=== PATIENT | male | born 1995 | race Caucasian/White ===

== ENCOUNTER 2023-02-20 08:13 | Emergency (ER) | payer SELFPAY ==
[~2023-02-20] VITALS: Ht 172.7 cm; Wt 56.8 kg
[2023-02-20 08:14] VITALS: TEMP 98
[2023-02-20 08:20] VITALS: BP 132/70; PULSE 93; RESP 16
[2023-02-20] MEDS ORDERED: KETOROLAC TROMETHAMINE 60 MG/2 ML VIAL IM ONE (09:15)
[2023-02-20] MEDS ORDERED: OxyCODONE HCL/ACETAMINOPHEN 5-325 MG TABLET PO ONE (09:15)
[2023-02-20] MEDS ORDERED: IBUP-1492 PO (09:25)
[2023-02-20] MEDS ORDERED: BACITRACIN 0.9 GM PACKET OINTMENT TP ONE (09:30)
== END 2023-02-20 10:24 | disposition home or self-care (01) ==
LOC: EMS 08:16
DX: S52.122A Displaced fracture of head of left radius, initial encounter for closed fracture (principal); X58.XXXA Exposure to other specified factors, initial encounter; Y93.89 Activity, other specified; Y92.89 Other specified places as the place of occurrence of the external cause; Y99.8 Other external cause status
CPT/HCPCS: 99283; 29105; 73080; 96372; J1885

== ENCOUNTER 2023-02-21 08:34 | Emergency (ER) | payer SELFPAY ==
[~2023-02-21] VITALS: Ht 175.3 cm; Wt 68.2 kg
[~2023-02-21 08:34] MED LIST: IBUP-1492 PO
[2023-02-21 08:40] VITALS: TEMP 97.9
[2023-02-21 09:38] VITALS: BP 114/60; PULSE 82; RESP 18
== END 2023-02-21 09:54 | disposition home or self-care (01) ==
LOC: EMS 08:34
DX: S52.122A Displaced fracture of head of left radius, initial encounter for closed fracture (principal); W19.XXXA Unspecified fall, initial encounter; Y93.89 Activity, other specified; Y92.89 Other specified places as the place of occurrence of the external cause; Y99.8 Other external cause status
CPT/HCPCS: 99281; Z7502

== ENCOUNTER 2023-02-24 19:59 | Emergency (ER) | payer SELFPAY ==
[~2023-02-24] VITALS: Ht 170.2 cm; Wt 56.8 kg
[2023-02-24 20:50] VITALS: BP 125/68; PULSE 89; RESP 16; TEMP 98.3
== END 2023-02-24 22:21 | disposition home or self-care (01) ==
LOC: EMS 20:00
DX: S52.122A Displaced fracture of head of left radius, initial encounter for closed fracture (principal); S60.511A Abrasion of right hand, initial encounter; X58.XXXA Exposure to other specified factors, initial encounter; Y93.89 Activity, other specified; Y92.89 Other specified places as the place of occurrence of the external cause; Y99.8 Other external cause status
CPT/HCPCS: 99282; Z7502

== ENCOUNTER 2023-03-31 20:41 | Emergency (ER) | payer MEDICAID, OTHER ==
[~2023-03-31] VITALS: Ht 175.3 cm; Wt 57.2 kg
[2023-03-31 20:50] VITALS: TEMP 98.2
[2023-03-31] MEDS: IBUPROFEN 400 MG TABLET PO ONE (21:16)
[2023-03-31] MEDS: BACITRACIN 0.9 GM PACKET OINTMENT TP ONE (22:22)
[2023-03-31 22:30] VITALS: BP 108/70; PULSE 72; RESP 16
[2023-03-31] MEDS ORDERED: IBUP-1506 PO (22:32)
== END 2023-03-31 22:56 | disposition home or self-care (01) ==
LOC: EMS 20:42
DX: S01.511A Laceration without foreign body of lip, initial encounter (principal); W19.XXXA Unspecified fall, initial encounter; Y93.89 Activity, other specified; Y92.89 Other specified places as the place of occurrence of the external cause; Y99.8 Other external cause status
CPT/HCPCS: 12011; 70450; 70486; 99284

== ENCOUNTER 2023-04-07 12:20 | Emergency (ER) | payer MEDICAID ==
[~2023-04-07] VITALS: Ht 180.3 cm; Wt 61.4 kg
[~2023-04-07 12:20] MED LIST changes: -IBUP-1492 PO; +IBUP-1506 PO
[2023-04-07 12:22] VITALS: BP 138/86; PULSE 88; RESP 16; TEMP 98
== END 2023-04-07 13:51 | disposition home or self-care (01) ==
LOC: EMS 12:26
DX: S00.501D Unspecified superficial injury of lip, subsequent encounter (principal); Z48.02 Encounter for removal of sutures; X58.XXXD Exposure to other specified factors, subsequent encounter
CPT/HCPCS: 99281; Z7502